=== PATIENT | female | born 1975 | race African-American/Black ===

== ENCOUNTER 2017-02-26 17:53 | Emergency (ER) | payer OTHER ==
[~2017-02-26] VITALS: Ht 170.2 cm; Wt 52.6 kg
[~2017-02-26 17:53] MED LIST: BENTYL 20 MG TA20 M1 PO; IBUPROFEN 200200 M1 PO; LABETALOL HCL100 MG; LISINOPRIL10 MG PO; NORCO 5-325 TA1 EACH PO; PAIN & FEVER325 MG PO; VICODIN 5-5001 EACH PO; ZOFRAN ODT4 M1 PO; ZOFRAN ODT4 MG PO
[2017-02-26 18:38] LABS: ABSOLUTE NEUTROPHILS 5.6 thou/uL (1.4-8.2); BASOPHILS 0.8 % (0.0-2.0); HEMATOCRIT 37.6 % (37.0-47.0); HEMOGLOBIN 12.9 gm/dL (12.0-15.0); LYMPHOCYTES 18.6 % (24.0-44.0); MANUAL DIFF NO; MCHC 34.3 g/dL (28.0-37.0); MCV 99.1 fL (80.0-100.0); MONOCYTES 3.3 % (1.0-8.0); PLATELET COUNT 120 thou/uL (150-400); POLYS 77.3 % (36.0-66.0); RDW 14.4 % (10.5-14.5); WBC 7.2 thou/uL (4.0-11.0)
[2017-02-26 18:49] LABS: CALCIUM 9.3 mg/dL (8.5-10.1); CREATININE 0.9 mg/dL (0.6-1.0); POTASSIUM 3.3 mmol/L (3.5-5.1)
[2017-02-26 18:54] LABS: ALBUMIN 3.8 g/dL (3.4-5.0); DIRECT BILIRUBIN 0.2 mg/dL (<0.1-0.3); TOTAL BILIRUBIN 0.8 mg/dL (<0.1-1.0); TOTAL PROTEIN 7.2 g/dL (6.4-8.2)
[2017-02-26] MEDS ORDERED: NORCO 5-325 TA1 EACH PO (20:24)
[2017-02-26 20:54] VITALS: BP 145/51
== END 2017-02-26 20:58 | disposition home or self-care (01) ==
LOC: ER 17:53
PROVIDERS: Emergency Medicine
DX: R10.84 Generalized abdominal pain (principal); I10 Essential (primary) hypertension; G40.909 Epilepsy, unspecified, not intractable, without status epilepticus; F17.210 Nicotine dependence, cigarettes, uncomplicated; F10.99 Alcohol use, unspecified with unspecified alcohol-induced disorder; Z88.5 Allergy status to narcotic agent

== ENCOUNTER 2017-06-25 11:53 | Inpatient (IN) | payer OTHER ==
[~2017-06-25] VITALS: Ht 152.4 cm; Wt 73.0 kg
--- NOTE | ~2017-06-25 | S ---
[facility] [place] [address] SURGICAL PATH RPT PROCEDURE Name: LAMONT ANTHONY Room #: 432-P DIS IN M.R.#: [id number] Admission: 06/25/17 Date of : 73 Discharge: 06/28/17 Report #: [id number] Path Case #: [id number] PATHOLOGY REPORT COLLECTION DATE: 06/26/2017 RECEIVED DATE: 06/28/2017 SUBMITTING PHYS: Dr. Young Dewitt OTHER PHYS: Dr. Ann Gonzalez D.O. SPECIMEN(S) RECEIVED: A.Small bowel for celiac bx B.Bx antrum for H. pylori C.Bx distal esophagus, r/o Barretts * * * * * * * * * * * * FINAL DIAGNOSIS: A. Small bowel mucosa, small bowel for celiac, endoscopic biopsy: - No diagnostic abnormalities present. - Negative for villous blunting or increase in intraepithelial lymphocytes. B. Gastric mucosa, antrum rule out H. pylori, endoscopic biopsy: - Mild reactive gastropathy. - Negative for intestinal metaplasia or atrophy. - Negative for Helicobacter pylori. C. Gastric cardia-type mucosa, distal esophagus rule out Baker's, endoscopic biopsy: - Moderate chronic inflammation. - Negative for intestinal metaplasia or dysplasia. COMMENT: Well controlled Helicobacter pylori immunohistochemical stain performed on block B1 - negative. (IUV:pit; 06/29/2017) PATHOLOGIST: Patricia Pham M.D. REPORT ELECTRONICALLY SIGNED BY: Patricia Pham M.D. DATE/TIME: 06/29/2017 15:38 * * * * * * * * * * * * GROSS PATHOLOGY: A. The specimen is received in formalin, labeled "Lamont Anthony BX small bowel for celiac," and consists of 3 fragments of loving soft tissue measuring between 0.6 x 0.2 and 0.1 cm and 0.2 x 0.2 x 0.1 cm. They are entirely submitted in cassette A1. B. Received in formalin labeled "Lamont Anthony BX antrum rule out [address] [address] SURGICAL PATH RPT PROCEDURE Name: LAMONT ANTHONY [facility] Room #: 432-P [facility] IN M.R.#: [id number] Admission: 06/25/17 Date of : 73 Discharge: 06/28/17 Report #: [id number] Path Case #: [id number] H. pylori," is a segment of loving soft tissue measuring 0.3 x 0.2 x 0.1 cm in maximum dimension. The specimen is submitted entirely in cassette B1. C. The specimen is received in formalin, labeled "Lamont Anthony BX distal esophagus rule out Baker's," and consists of 2 fragments of loving soft tissue measuring 0.4 x 0.3 x 0.1 cm and 0.3 x 0.3 x 0.2 cm. They are entirely submitted in cassette C1. (SDY; 06/28/2017) CLINICAL HISTORY: Abdominal pain Esophagitis, gastritis INITIAL CPT CODE(S): A; 11058 B; 13708, 05724 C; 89434 Professional services performed by [facility] at [facility] [address], [place] [address] Technical services performed by [facility] at [address] [place] [address], [address], [place] [address]. [facility] [address] [place] [address] PHONE: [phone] DIRECTOR: Randy Chow M.D. * * * END OF REPORT * * *
--- NOTE | ~2017-06-25 | H ---
[facility] [place] [address] [place] [address] HISTORY AND PHYSICAL Name: LAMONT ANTHONY Room #: 432-P [facility] IN M.R.#: [id number] Admission: 06/25/17 Attend Phys: Ann Martin MD Discharge: 06/28/17 Date of : 73 Report #: [id number] THIS REPORT FOR: //name// CC: HERLINDA Martin DATE OF SERVICE: 06/25/2017 CHIEF COMPLAINT: Abdominal pain, nausea and vomiting. HISTORY OF PRESENT ILLNESS: The patient is a 42-year-old female with history of IBS, who came to the hospital with intractable nausea, vomiting and abdominal pain. The patient states that she ate out at restaurants yesterday. This morning she woke up with severe abdominal pain, with nausea and vomiting. The patient states that abdominal pain is diffuse, and describes it as severe. She vomited 7 times this morning, and her food intake has been diminished. Her potassium level is 2.7. Other electrolytes are in the normal range. KUB is unremarkable, and lipase is normal. The patient denies diarrhea, or change in bowel habits. PAST MEDICAL HISTORY: 1. Hypertension. 2. History of seizures, not otherwise specified, not on current treatment. 3. IBS. CURRENT MEDICATIONS: Dicyclomine, [place], lisinopril, and Zofran as needed. FAMILY HISTORY: Reviewed and not pertinent to the patient's current condition. SOCIAL HISTORY: The patient smokes cigarettes and marijuana. She denies alcohol use. REVIEW OF SYSTEMS: As above in HPI section, all others negative. PHYSICAL EXAMINATION: GENERAL: The patient is a young healthy looking female who is uncomfortable due to ongoing symptoms. VITAL SIGNS: Blood pressure is 148/75, from 179/115 earlier. Heart rate is between 48 and 86. Respiration is 12, temperature is 95.7. HEENT: Pupils are equal. Eye movements are normal. Sclerae are anicteric. NECK: Supple. The patient has no thyromegaly. JVD is not appreciated. Oral mucosa is somewhat dry. RESPIRATORY: The patient has clear respiratory sounds bilaterally. Chest moves symmetrically with breathing. CARDIOVASCULAR: The patient has regular rhythm and rate. She has no murmurs, gallops, or rubs. [address] [address] HISTORY AND PHYSICAL Name: LAMONT ANTHONY COUNTS INCLUDE 234 BEDS AT THE [facility] Room #: [address] [place] [address] IN [facility].#: [id number] Admission: 06/25/17 Attend Phys: Ann Martin MD Discharge: 06/28/17 Date of : 73 Report #: [id number] GASTROINTESTINAL: Abdomen is soft, nondistended, with present bowel sounds. Abdomen is slightly tender on deep palpation, diffusely. There is no focal tenderness, and no rebound. Hepatomegaly or splenomegaly is not palpated. MUSCULOSKELETAL: There is no edema, cyanosis, or clubbing. NEUROLOGIC: Grossly intact. LABS: Basic metabolic profile is essentially normal, except potassium of 2.7. Liver function tests are normal. test is negative. Lipase is normal. CBC with differential is normal. Hemoglobin is slightly high at 15.8. Platelets slightly low at 145. Urinalysis is still pending. ASSESSMENT AND PLAN: 1. Nausea and vomiting, and diffuse abdominal pain. Irritable bowel syndrome exacerbation, versus hyperemesis due to marijuana use. Unremarkable examination, negative KUB, and normal lipase. We will continue symptomatic treatment. We will ask GI team to evaluate the patient. Consultation is appreciated. 2. Hypokalemia, due to nausea and vomiting. Potassium is 2.7. Potassium is being replaced. Continue IV fluids and reassess. 3. Marijuana and tobacco abuse. Advised to quit. 4. Hypertension. The patient has accelerated hypertension when she came in, but now blood pressure is acceptable. As noted, blood pressure was 179/115, and currently it is 148/75. Lisinopril was resumed. Hydralazine will be used p.r.n. 5. Deep venous thrombosis prophylaxis. SubQ Lovenox. <ELECTRONICALLY SIGNED> By: Ann Martin MD 06/28/17 1906 1500 1654 Ann Martin MD /nt
--- NOTE | ~2017-06-25 | EKG ---
[place] [address] [facility] [place] [address] ELECTROCARDIOGRAM REPORT Name: LAMONT ANTHONYYUDELKA Room #: 432- ADM IN M.R.#: [id number] Admission: 06/25/17 Attend Phys: Ann Martin MD Discharge: Date of : 73 Report #: [id number] THIS REPORT FOR: //name// [facility] Test Date: 2017-06-27 Test Time: 09:18:30 Pat Name: LAMONT ANTHONY Department: Room: 432 Gender: F Process Safety Specialist: ED : 1975 Requested By: Etelvina Smith Order Number: [id number] MD: Fabio Carter Measurements Intervals [place] Rate: 44 P: 10 SD: 138 QRS: 60 QRSD: 99 T: 58 QT: 503 QTc: 431 Interpretive Statements Sinus bradycardia Poor R wave progression ST elev, probable normal early repol pattern No previous ECG available for comparison Electronically Signed On 06-27-2017 15:32:15 [employer]ICAL [employer]ATOR by Fabio Carter [email or web address] <ELECTRONICALLY SIGNED> By: Fabio Carter MD, [facility] 06/27/17 1532 7 Fabio Carter MD, FACC /EPI
[2017-06-25 12:10] VITALS: BP 179/115
[2017-06-25 12:26] LABS: ABSOLUTE NEUTROPHILS 5.3 thou/uL (1.4-8.2); BASOPHILS 0.5 % (0.0-2.0); EOSINOPHILS 1.1 % (0.0-3.0); HEMATOCRIT 45.7 % (37.0-47.0); HEMOGLOBIN 15.8 gm/dL (12.0-15.0); LYMPHOCYTES 26.5 % (24.0-44.0); MCH 33.1 pg (26.0-34.0); MCHC 34.6 g/dL (28.0-37.0); MCV 95.7 fL (80.0-100.0); MONOCYTES 4.5 % (1.0-8.0); PLATELET COUNT 145 thou/uL (150-400); POLYS 67.4 % (36.0-66.0); RBC 4.77 mil/uL (4.20-5.00); RDW 15.5 % (10.5-14.5); WBC 7.9 thou/uL (4.0-11.0)
[2017-06-25 13:02] LABS: CALCIUM 9.7 mg/dL (8.5-10.1); CREATININE 0.9 mg/dL (0.6-1.0)
[2017-06-25 13:04] LABS: POTASSIUM 2.7 mmol/L (3.5-5.1)
[2017-06-25 13:08] LABS: TOTAL BILIRUBIN 0.6 mg/dL (<0.1-1.0); TOTAL PROTEIN 7.7 g/dL (6.4-8.2)
[2017-06-25 15:07] VITALS: BP 148/75
[2017-06-25 16:00] VITALS: BP 143/70
[2017-06-25 20:00] VITALS: BP 187/76
[2017-06-25 20:41] VITALS: BP 187/76
[2017-06-26 00:14] VITALS: BP 128/71
[2017-06-26 03:55] VITALS: BP 104/57
[2017-06-26 06:28] LABS: ABSOLUTE NEUTROPHILS 4.7 thou/uL (1.4-8.2); BASOPHILS 0.8 % (0.0-2.0); EOSINOPHILS 0.3 % (0.0-3.0); HEMATOCRIT 40.1 % (37.0-47.0); LYMPHOCYTES 28.5 % (24.0-44.0); MCH 32.8 pg (26.0-34.0); MCHC 33.6 g/dL (28.0-37.0); MCV 97.8 fL (80.0-100.0); MONOCYTES 8.8 % (1.0-8.0); PLATELET COUNT 119 thou/uL (150-400); POLYS 61.6 % (36.0-66.0); RDW 15.3 % (10.5-14.5); WBC 7.6 thou/uL (4.0-11.0)
[2017-06-26 06:31] LABS: HEMOGLOBIN 13.4 gm/dL (12.0-15.0)
[2017-06-26 06:53] LABS: CALCIUM 8.4 mg/dL (8.5-10.1); CREATININE 0.7 mg/dL (0.6-1.0); POTASSIUM 3.9 mmol/L (3.5-5.1)
[2017-06-26 08:00] VITALS: BP 89/49
[2017-06-26 10:56] LABS: URINE BILIRUBIN NEGATIVE (Negative); URINE BLOOD NEGATIVE (Negative); URINE CLARITY CLEAR; URINE COLOR YELLOW; URINE GLUCOSE-RANDOM* NEGATIVE (Negative); URINE KETONES NEGATIVE (Negative); URINE LEUKOCYTES-REFLEX NEGATIVE (Negative); URINE NITRITE-REFLEX NEGATIVE (Negative); URINE PROTEIN (DIPSTICK) NEGATIVE (Negative); URINE SPECIFIC GRAVITY 1.025 (1.005-1.035); URINE UROBILINOGEN 0.2 E.U./dl (0.2-1.0)
[2017-06-26 13:31] LABS: AMP/METHAMP Negative (Negative); BARBITURATES Negative (Negative); BENZODIAZEPINES Negative (Negative); COCAINE Negative (Negative); METHADONE Negative (Negative); OPIATES POSITIVE (Negative); PCP Negative (Negative)
[2017-06-26 15:18] VITALS: BP 166/67
[2017-06-26 23:40] VITALS: BP 112/52
[2017-06-27 04:00] VITALS: BP 171/66
[2017-06-27 06:09] LABS: HEMATOCRIT 40.2 % (37.0-47.0); HEMOGLOBIN 13.5 gm/dL (12.0-15.0); MCH 32.9 pg (26.0-34.0); MCHC 33.5 g/dL (28.0-37.0); MCV 98.1 fL (80.0-100.0); RBC 4.1 mil/uL (4.20-5.00); RDW 15.5 % (10.5-14.5)
[2017-06-27 06:17] LABS: ALBUMIN 3.4 g/dL (3.4-5.0); CALCIUM 8.8 mg/dL (8.5-10.1); CREATININE 0.8 mg/dL (0.6-1.0); POTASSIUM 4.1 mmol/L (3.5-5.1); TOTAL BILIRUBIN 0.6 mg/dL (<0.1-1.0); TOTAL PROTEIN 6.6 g/dL (6.4-8.2)
[2017-06-27 08:46] VITALS: BP 113/61
[2017-06-27 15:50] VITALS: BP 150/61
[2017-06-27 20:00] VITALS: BP 101/58
[2017-06-27 23:50] VITALS: BP 114/69
[2017-06-28 00:10] VITALS: BP 114/69
[2017-06-28 05:23] LABS: HEMATOCRIT 35.9 % (37.0-47.0); HEMOGLOBIN 12.1 gm/dL (12.0-15.0); MCH 32.6 pg (26.0-34.0); MCHC 33.8 g/dL (28.0-37.0); MCV 96.5 fL (80.0-100.0); RBC 3.72 mil/uL (4.20-5.00); RDW 14.8 % (10.5-14.5); WBC 4.9 thou/uL (4.0-11.0)
[2017-06-28 05:31] VITALS: BP 125/66
[2017-06-28 05:44] LABS: ALBUMIN 2.7 g/dL (3.4-5.0); CALCIUM 7.9 mg/dL (8.5-10.1); CREATININE 0.9 mg/dL (0.6-1.0); POTASSIUM 4.4 mmol/L (3.5-5.1); TOTAL BILIRUBIN 0.4 mg/dL (<0.1-1.0); TOTAL PROTEIN 5.6 g/dL (6.4-8.2)
[2017-06-28 07:40] VITALS: BP 122/65
[2017-06-28 11:06] VITALS: BP 122/65
== END 2017-06-28 11:47 | disposition home or self-care (01) | DRG 392 ==
LOC: ER 11:53 → EROBS 14:08 → 4E 15:51 → ENTRNSPT 06-28 11:32 → EDTRNSPTSTS 06-28 11:34 → 4E 06-28 11:47
PROVIDERS: Hospitalist; Internal Medicine Endocrinology, Diabetes & Metabolism; Physician Assistant
PROC: 0DB68ZX Excision of Stomach, Via Natural or Artificial Opening Endoscopic, Diagnostic (ICD-10-PCS; principal; 2017-06-26)
PROC: 0DB58ZX Excision of Esophagus, Via Natural or Artificial Opening Endoscopic, Diagnostic (ICD-10-PCS; principal; 2017-06-26)
PROC: 0DB98ZX Excision of Duodenum, Via Natural or Artificial Opening Endoscopic, Diagnostic (ICD-10-PCS; principal; 2017-06-26)
DX: K29.70 Gastritis, unspecified, without bleeding (principal); I10 Essential (primary) hypertension; F17.210 Nicotine dependence, cigarettes, uncomplicated; E87.6 Hypokalemia; F12.10 Cannabis abuse, uncomplicated; G40.909 Epilepsy, unspecified, not intractable, without status epilepticus; K20.9 Esophagitis, unspecified; K58.9 Irritable bowel syndrome, unspecified; F19.10 Other psychoactive substance abuse, uncomplicated; Z88.0 Allergy status to penicillin; Z79.899 Other long term (current) drug therapy; Z88.6 Allergy status to analgesic agent; Z28.21 Immunization not carried out because of patient refusal
CPT/HCPCS: 10183; 62110; 62900; 70005

== ENCOUNTER 2017-07-04 15:55 | Emergency (ER) | payer OTHER ==
[~2017-07-04] VITALS: Ht 165.1 cm; Wt 72.6 kg
[2017-07-04 16:15] LABS: ABSOLUTE NEUTROPHILS 5.6 thou/uL (1.4-8.2); BASOPHILS 0.7 % (0.0-2.0); EOSINOPHILS 0.3 % (0.0-3.0); HEMATOCRIT 45.2 % (37.0-47.0); HEMOGLOBIN 15.6 gm/dL (12.0-15.0); LYMPHOCYTES 18.8 % (24.0-44.0); MCH 32.9 pg (26.0-34.0); MCHC 34.4 g/dL (28.0-37.0); MCV 95.7 fL (80.0-100.0); MONOCYTES 3.6 % (1.0-8.0); PLATELET COUNT 176 thou/uL (150-400); POLYS 76.6 % (36.0-66.0); RBC 4.73 mil/uL (4.20-5.00); RDW 14.8 % (10.5-14.5); WBC 7.3 thou/uL (4.0-11.0)
[2017-07-04] MEDS ORDERED: HYDROXYZINE HCL25 M1 PO (16:20)
[2017-07-04 16:22] LABS: ANION GAP 14 mmol/L (7-16); BUN 12 mg/dL (7-18); CALCIUM 10.1 mg/dL (8.5-10.1); CHLORIDE 103 mmol/L (98-107); CO2 25 mmol/L (21-32); GLUCOSE 116 mg/dL (74-106); POTASSIUM 3.9 mmol/L (3.5-5.1); SODIUM 142 mmol/L (136-145)
[2017-07-04 16:28] LABS: ALBUMIN 4.4 g/dL (3.4-5.0); DIRECT BILIRUBIN < 0.1 mg/dL (<0.1-0.3); LIPASE 64 U/L (73-393); SGOT 23 U/L (15-37); SGPT 34 U/L (30-65); TOTAL BILIRUBIN 0.6 mg/dL (<0.1-1.0); TOTAL PROTEIN 8.6 g/dL (6.4-8.2)
[2017-07-04 18:13] VITALS: BP 92/49
[2017-07-04] MEDS ORDERED: PEPCID20 MG PO (18:22)
[2017-07-04] MEDS ORDERED: CARAFATE 1 GM TA1 G1 PO (18:22)
[2017-07-04] MEDS ORDERED: PHENERGAN 25 MG25 M1 PO (18:22)
== END 2017-07-04 18:47 | disposition home or self-care (01) ==
LOC: ER 15:55
PROVIDERS: Nurse Practitioner
DX: R10.9 Unspecified abdominal pain (principal); R11.2 Nausea with vomiting, unspecified; I10 Essential (primary) hypertension; Z88.5 Allergy status to narcotic agent

== ENCOUNTER 2017-08-19 14:44 | Emergency (ER) | payer OTHER ==
[~2017-08-19] VITALS: Ht 170.2 cm; Wt 72.6 kg
[~2017-08-19 14:44] MED LIST changes: +CARAFATE 1 GM TA1 G1 PO; +HYDROXYZINE HCL25 M1 PO; +PEPCID20 MG PO; +PHENERGAN 25 MG25 M1 PO
[2017-08-19] MEDS ORDERED: HYDROCHLOROTHIA25 M2 PO (15:30)
[2017-08-19] MEDS ORDERED: LINZESS290 MCG PO (15:31)
[2017-08-19] MEDS ORDERED: ZOLOFT50 MG PO (15:31)
[2017-08-19 15:40] LABS: ABSOLUTE NEUTROPHILS 6.2 thou/uL (1.4-8.2); BASOPHILS 0.6 % (0.0-2.0); EOSINOPHILS 0.1 % (0.0-3.0); HEMATOCRIT 45.3 % (37.0-47.0); HEMOGLOBIN 15.4 gm/dL (12.0-15.0); LYMPHOCYTES 13.6 % (24.0-44.0); MCH 33.9 pg (26.0-34.0); MCV 99.8 fL (80.0-100.0); MONOCYTES 2.4 % (1.0-8.0); POLYS 83.3 % (36.0-66.0); RBC 4.54 mil/uL (4.20-5.00); RDW 14.9 % (10.5-14.5); WBC 7.5 thou/uL (4.0-11.0)
[2017-08-19 15:48] LABS: CALCIUM 10.2 mg/dL (8.5-10.1); CREATININE 0.9 mg/dL (0.6-1.0); POTASSIUM 3.4 mmol/L (3.5-5.1)
[2017-08-19 15:53] LABS: ALBUMIN 4.5 g/dL (3.4-5.0); TOTAL BILIRUBIN 0.7 mg/dL (<0.1-1.0)
[2017-08-19 15:57] LABS: PLATELET COUNT 149 thou/uL (150-400)
[2017-08-19 16:01] LABS: URINE BILIRUBIN 1+ (Negative); URINE BLOOD TRACE (Negative); URINE CLARITY CLEAR; URINE COLOR YELLOW; URINE GLUCOSE-RANDOM* NEGATIVE (Negative); URINE KETONES 3+ (Negative); URINE LEUKOCYTES-REFLEX NEGATIVE (Negative); URINE NITRITE-REFLEX NEGATIVE (Negative); URINE PROTEIN (DIPSTICK) 3+ (Negative); URINE UROBILINOGEN 0.2 E.U./dl (0.2-1.0)
[2017-08-19 16:09] LABS: AMP/METHAMP Negative (Negative); BARBITURATES Negative (Negative); BENZODIAZEPINES Negative (Negative); COCAINE Negative (Negative); METHADONE Negative (Negative); OPIATES POSITIVE (Negative); PCP Negative (Negative)
[2017-08-19 16:13] LABS: ICTOTEST (BILI CONFIRMATORY) Negative (Negative); URINE REDUCING SUBSTANCE NEGATIVE
[2017-08-19 16:26] LABS: BACTERIA-REFLEX None Seen /HPF (None Seen); CASTS None Seen /LPF (None Seen); CRYSTALS None Seen /LPF (None Seen); MUCUS >6 Heavy strn/LPF (None Seen); SQUAMOUS 0-3 Few /LPF (0-3); URINE RBC 3-10 Few /HPF (0-2); URINE WBC-REFLEX 0-5 Rare /HPF (0-5)
[2017-08-19] MEDS ORDERED: ZANTAC 150MG T150 MG PO (17:18)
[2017-08-19] MEDS ORDERED: ZOFRAN ODT4 MG DISSOLVE (17:18)
[2017-08-19] MEDS ORDERED: BENTYL 20 MG TA20 M1 PO (17:18)
== END 2017-08-19 18:32 | disposition home or self-care (01) ==
LOC: ER 14:44
PROVIDERS: Physician Assistant
DX: R10.9 Unspecified abdominal pain (principal); R11.2 Nausea with vomiting, unspecified

== ENCOUNTER 2017-08-22 01:45 | Emergency (ER) | payer OTHER ==
[~2017-08-22] VITALS: Ht 170.2 cm; Wt 70.8 kg
[~2017-08-22 01:45] MED LIST changes: +HYDROCHLOROTHIA25 M2 PO; +LINZESS290 MCG PO; +ZANTAC 150MG T150 MG PO; +ZOFRAN ODT4 MG DISSOLVE; +ZOLOFT50 MG PO
[2017-08-22 02:20] LABS: ABSOLUTE NEUTROPHILS 4.9 thou/uL (1.4-8.2); BASOPHILS 0.8 % (0.0-2.0); EOSINOPHILS 0.3 % (0.0-3.0); HEMATOCRIT 45.9 % (37.0-47.0); HEMOGLOBIN 15.8 gm/dL (12.0-15.0); LYMPHOCYTES 27.4 % (24.0-44.0); MCH 34.2 pg (26.0-34.0); MCHC 34.3 g/dL (28.0-37.0); MCV 99.6 fL (80.0-100.0); MONOCYTES 7.4 % (1.0-8.0); PLATELET COUNT 147 thou/uL (150-400); POLYS 64.1 % (36.0-66.0); RBC 4.61 mil/uL (4.20-5.00); RDW 14.9 % (10.5-14.5); WBC 7.7 thou/uL (4.0-11.0)
[2017-08-22] MEDS ORDERED: PHENERGAN 25 MG25 M1 PO (02:23)
[2017-08-22] MEDS ORDERED: LIORESAL 10 MG10 MG PO (02:23)
[2017-08-22 02:24] LABS: CALCIUM 9.2 mg/dL (8.5-10.1)
[2017-08-22 02:31] LABS: POTASSIUM 2.9 mmol/L (3.5-5.1)
[2017-08-22 02:32] LABS: ALBUMIN 4.1 g/dL (3.4-5.0); DIRECT BILIRUBIN 0.2 mg/dL (<0.1-0.3); TOTAL BILIRUBIN 0.9 mg/dL (<0.1-1.0); TOTAL PROTEIN 8.3 g/dL (6.4-8.2)
[2017-08-22 04:06] LABS: URINE BLOOD 1+ (Negative); URINE CLARITY CLEAR; URINE GLUCOSE-RANDOM* NEGATIVE (Negative); URINE KETONES 1+ (Negative); URINE LEUKOCYTES-REFLEX NEGATIVE (Negative); URINE NITRITE-REFLEX NEGATIVE (Negative); URINE PROTEIN (DIPSTICK) 1+ (Negative); URINE SPECIFIC GRAVITY 1.015 (1.005-1.035); URINE UROBILINOGEN 0.2 E.U./dl (0.2-1.0)
[2017-08-22 04:08] LABS: ICTOTEST (BILI CONFIRMATORY) Negative (Negative); URINE BILIRUBIN NEGATIVE (Negative); URINE COLOR DARK YELLOW
[2017-08-22 04:19] LABS: MUCUS 0-3 Light strn/LPF (None Seen); SQUAMOUS >10 Many /LPF (0-3)
[2017-08-22 04:20] LABS: CASTS None Seen /LPF (None Seen); CRYSTALS None Seen /LPF (None Seen); URINE WBC-REFLEX 0-5 Rare /HPF (0-5)
[2017-08-22] MEDS ORDERED: PHENERGAN 25 MG25 MG PO (04:43)
== END 2017-08-22 04:57 | disposition home or self-care (01) ==
LOC: ER 01:45
PROVIDERS: Emergency Medicine
DX: R10.9 Unspecified abdominal pain (principal); R11.2 Nausea with vomiting, unspecified; I10 Essential (primary) hypertension; F17.210 Nicotine dependence, cigarettes, uncomplicated; Z98.890 Other specified postprocedural states; Z88.5 Allergy status to narcotic agent

== ENCOUNTER 2017-08-25 09:47 | Emergency (ER) | payer OTHER ==
[~2017-08-25] VITALS: Ht 170.2 cm; Wt 70.3 kg
--- NOTE | ~2017-08-25 | EKG ---
[place] [address] [facility] [place] [address] ELECTROCARDIOGRAM REPORT Name: LAMONT ANTHONY [id number] Admission: 08/25/17 Attend Phys: Discharge: 08/25/17 Date of : 73 Report #: [id number] THIS REPORT FOR: //name// [facility] ED Test Date: 2017-08-25 Test Time: 12:29:46 Pat Name: LAMONT ANTHONY Department: Room: Gender: F Check Cashier: EMIL : 1975 Requested By: Irene Boswell Order Number: [id number] MD: Fabio Carter Measurements Intervals [place] Rate: 52 P: 35 IA: 130 QRS: 63 QRSD: 102 T: 60 QT: 508 QTc: 473 Interpretive Statements Sinus bradycardia Early repolarization Baseline wander in lead(s) III Compared to ECG 06/27/2017 09:18:30 No significant change was found Electronically Signed On 08-25-2017 16:52:30 CDT by Fabio Carter [email or web address] <ELECTRONICALLY SIGNED> By: Fabio Carter MD, [facility] 08/25/17 1652 1229 1229 Fabio Carter MD, [facility] /EPI
[~2017-08-25 09:47] MED LIST changes: +LIORESAL 10 MG10 MG PO; +PHENERGAN 25 MG25 MG PO
[2017-08-25] MEDS ORDERED: NORCO 5-325 TA1 EACH PO (09:58)
[2017-08-25 10:07] LABS: BASOPHILS 0.7 % (0.0-2.0); EOSINOPHILS 0.7 % (0.0-3.0); HEMATOCRIT 44.9 % (37.0-47.0); HEMOGLOBIN 15.4 gm/dL (12.0-15.0); LYMPHOCYTES 21.3 % (24.0-44.0); MCH 34.1 pg (26.0-34.0); MCHC 34.3 g/dL (28.0-37.0); MCV 99.4 fL (80.0-100.0); PLATELET COUNT 144 thou/uL (150-400); POLYS 71.3 % (36.0-66.0); RBC 4.52 mil/uL (4.20-5.00); RDW 14.7 % (10.5-14.5); WBC 9.8 thou/uL (4.0-11.0)
[2017-08-25 10:08] LABS: URINE BILIRUBIN NEGATIVE (Negative); URINE BLOOD TRACE (Negative); URINE CLARITY CLEAR; URINE COLOR YELLOW; URINE GLUCOSE-RANDOM* NEGATIVE (Negative); URINE KETONES NEGATIVE (Negative); URINE LEUKOCYTES NEGATIVE (Negative); URINE NITRITE NEGATIVE (Negative); URINE PROTEIN (DIPSTICK) TRACE (Negative); URINE SPECIFIC GRAVITY 1.015 (1.005-1.035)
[2017-08-25 10:16] LABS: CREATININE 0.9 mg/dL (0.6-1.0); POTASSIUM 3.1 mmol/L (3.5-5.1)
[2017-08-25 10:22] LABS: ALBUMIN 4.3 g/dL (3.4-5.0); TOTAL BILIRUBIN 0.8 mg/dL (<0.1-1.0); TOTAL PROTEIN 8.6 g/dL (6.4-8.2)
[2017-08-25] MEDS ORDERED: ONDANSETRON HCL4 M2 PO (13:38)
== END 2017-08-25 13:53 | disposition home or self-care (01) ==
LOC: ER 09:47
PROVIDERS: Physician Assistant
DX: K29.00 Acute gastritis without bleeding (principal); F12.10 Cannabis abuse, uncomplicated; I10 Essential (primary) hypertension; F17.210 Nicotine dependence, cigarettes, uncomplicated; Z88.5 Allergy status to narcotic agent

== ENCOUNTER 2017-10-14 09:50 | Emergency (ER) | payer OTHER ==
[~2017-10-14] VITALS: Ht 170.2 cm; Wt 73.5 kg
[~2017-10-14 09:50] MED LIST changes: +ONDANSETRON HCL4 M2 PO
[2017-10-14] MEDS ORDERED: PHENERGAN 25 MG25 M1 PO (10:03)
[2017-10-14] MEDS ORDERED: PROMS25 WY RECTAL (10:03)
[2017-10-14 10:30] LABS: ABSOLUTE NEUTROPHILS 5.9 thou/uL (1.4-8.2); EOSINOPHILS 0.2 % (0.0-3.0); HEMATOCRIT 46.9 % (37.0-47.0); HEMOGLOBIN 15.9 gm/dL (12.0-15.0); LYMPHOCYTES 21.1 % (24.0-44.0); MCH 33.9 pg (26.0-34.0); MCV 99.7 fL (80.0-100.0); MONOCYTES 3.6 % (1.0-8.0); PLATELET COUNT 142 thou/uL (150-400); POLYS 74.1 % (36.0-66.0); RDW 14.1 % (10.5-14.5); WBC 7.9 thou/uL (4.0-11.0)
[2017-10-14 10:40] LABS: CALCIUM 9.4 mg/dL (8.5-10.1)
[2017-10-14 10:46] LABS: ALBUMIN 4.3 g/dL (3.4-5.0); DIRECT BILIRUBIN 0.1 mg/dL (<0.1-0.3); TOTAL BILIRUBIN 0.5 mg/dL (<0.1-1.0); TOTAL PROTEIN 8.3 g/dL (6.4-8.2)
== END 2017-10-14 11:25 | disposition home or self-care (01) ==
LOC: ER 09:50
PROVIDERS: Emergency Medicine
DX: F12.188 Cannabis abuse with other cannabis-induced disorder (principal); R10.9 Unspecified abdominal pain; R11.0 Nausea; E87.6 Hypokalemia; I10 Essential (primary) hypertension; F17.210 Nicotine dependence, cigarettes, uncomplicated; Z88.5 Allergy status to narcotic agent

== ENCOUNTER 2017-10-16 01:32 | Emergency (ER) | payer OTHER ==
[~2017-10-16] VITALS: Ht 170.2 cm; Wt 73.0 kg
[~2017-10-16 01:32] MED LIST changes: +PROMS25 WY RECTAL
[2017-10-16 02:06] LABS: ABSOLUTE NEUTROPHILS 5.3 thou/uL (1.4-8.2); BASOPHILS 0.9 % (0.0-2.0); EOSINOPHILS 0.1 % (0.0-3.0); HEMATOCRIT 46.9 % (37.0-47.0); HEMOGLOBIN 16.3 gm/dL (12.0-15.0); LYMPHOCYTES 27.4 % (24.0-44.0); MCH 34.3 pg (26.0-34.0); MCHC 34.8 g/dL (28.0-37.0); MCV 98.7 fL (80.0-100.0); MONOCYTES 5.6 % (1.0-8.0); PLATELET COUNT 202 thou/uL (150-400); RBC 4.75 mil/uL (4.20-5.00); WBC 8.1 thou/uL (4.0-11.0)
[2017-10-16 02:13] LABS: CALCIUM 9.8 mg/dL (8.5-10.1); POTASSIUM 3.1 mmol/L (3.5-5.1)
[2017-10-16 02:18] LABS: ALBUMIN 4.4 g/dL (3.4-5.0); TOTAL BILIRUBIN 0.8 mg/dL (<0.1-1.0); TOTAL PROTEIN 8.7 g/dL (6.4-8.2)
[2017-10-16 05:29] LABS: URINE BILIRUBIN 1+ (Negative); URINE BLOOD 1+ (Negative); URINE CLARITY CLEAR; URINE COLOR YELLOW; URINE GLUCOSE-RANDOM* NEGATIVE (Negative); URINE KETONES 3+ (Negative); URINE LEUKOCYTES-REFLEX NEGATIVE (Negative); URINE NITRITE-REFLEX NEGATIVE (Negative); URINE PROTEIN (DIPSTICK) NEGATIVE (Negative); URINE SPECIFIC GRAVITY >= 1.030 (1.005-1.035); URINE UROBILINOGEN 0.2 E.U./dl (0.2-1.0)
[2017-10-16 05:31] LABS: ICTOTEST (BILI CONFIRMATORY) Negative (Negative)
[2017-10-16 05:40] LABS: BACTERIA-REFLEX None Seen /HPF (None Seen); CASTS None Seen /LPF (None Seen); CRYSTALS None Seen /LPF (None Seen); MUCUS 4-6 Moderate strn/LPF (None Seen); SQUAMOUS 4-10 Moderate /LPF (0-3); URINE RBC 3-10 Few /HPF (0-2); URINE WBC-REFLEX 0-5 Rare /HPF (0-5)
[2017-10-16] MEDS ORDERED: ZOFRAN ODT4 MG PO (06:21)
[2017-10-16] MEDS ORDERED: ZOFRAN ODT4 M1 PO (06:25)
== END 2017-10-16 06:38 | disposition home or self-care (01) ==
LOC: ER 01:32
PROVIDERS: Emergency Medicine
DX: R10.9 Unspecified abdominal pain (principal); R11.2 Nausea with vomiting, unspecified; I10 Essential (primary) hypertension; F17.210 Nicotine dependence, cigarettes, uncomplicated; Z88.5 Allergy status to narcotic agent

== ENCOUNTER 2019-04-24 10:44 | Emergency (ER) | payer OTHER ==
[~2019-04-24] VITALS: Ht 170.2 cm; Wt 83.9 kg
[2019-04-24 11:15] LABS: ABSOLUTE NEUTROPHILS 2.8 thou/uL (1.4-8.2); EOSINOPHILS 0.1 % (0.0-3.0); HEMATOCRIT 48.8 % (37.0-47.0); HEMOGLOBIN 16.7 gm/dL (12.0-15.0); LYMPHOCYTES 27.5 % (24.0-44.0); MCHC 34.2 g/dL (28.0-37.0); MCV 99.3 fL (80.0-100.0); MONOCYTES 10.5 % (1.0-8.0); PLATELET COUNT 122 thou/uL (150-400); POLYS 60.9 % (36.0-66.0); RBC 4.92 mil/uL (4.20-5.00); RDW 13.6 % (10.5-14.5); WBC 4.6 thou/uL (4.0-11.0)
[2019-04-24 11:28] LABS: ALBUMIN 4.6 g/dL (3.4-5.0); POTASSIUM 3.7 mmol/L (3.5-5.1); TOTAL BILIRUBIN 0.4 mg/dL (<0.1-1.0); TOTAL PROTEIN 9.9 g/dL (6.4-8.2)
[2019-04-24 11:37] LABS: CALCIUM 10.6 mg/dL (8.5-10.1)
[2019-04-24 12:43] LABS: URINE BLOOD 3+ (Negative); URINE CLARITY SL CLOUDY; URINE COLOR AMBER; URINE GLUCOSE-RANDOM* NEGATIVE (Negative); URINE KETONES 3+ (Negative); URINE LEUKOCYTES-REFLEX NEGATIVE (Negative); URINE NITRITE-REFLEX NEGATIVE (Negative); URINE PROTEIN (DIPSTICK) 3+ (Negative); URINE SPECIFIC GRAVITY >= 1.030 (1.005-1.035); URINE UROBILINOGEN 0.2 E.U./dl (0.2-1.0)
[2019-04-24 13:04] LABS: ICTOTEST (BILI CONFIRMATORY) Negative (Negative); URINE BILIRUBIN NEGATIVE (Negative)
[2019-04-24 13:05] LABS: URINE REDUCING SUBSTANCE NEGATIVE
[2019-04-24 13:29] LABS: CASTS None Seen /LPF (None Seen); CRYSTALS None Seen /LPF (None Seen); MUCUS 4-6 Moderate strn/LPF (None Seen); SQUAMOUS 0-3 Few /LPF (0-3); URINE RBC 3-10 Few /HPF (0-2)
[2019-04-24 13:30] LABS: URINE WBC-REFLEX 0-5 Rare /HPF (0-5)
[2019-04-24] MEDS ORDERED: ONDANSETRON HCL4 M2 PO (14:01)
[2019-04-24] MEDS ORDERED: BUTALB-APAP-CA1 EACH PO (14:01)
[2019-04-24 14:55] VITALS: BP 133/69
== END 2019-04-24 14:56 | disposition home or self-care (01) ==
LOC: ER 10:44
PROVIDERS: Physician Assistant
DX: R10.84 Generalized abdominal pain (principal); R11.2 Nausea with vomiting, unspecified; I10 Essential (primary) hypertension; F17.210 Nicotine dependence, cigarettes, uncomplicated; Z98.890 Other specified postprocedural states; Z88.5 Allergy status to narcotic agent

== ENCOUNTER 2020-01-09 11:26 | Emergency (ER) | payer OTHER ==
[~2020-01-09] VITALS: Ht 165.1 cm; Wt 79.4 kg
[~2020-01-09 11:26] MED LIST changes: +BUTALB-APAP-CA1 EACH PO
[2020-01-09] MEDS ORDERED: LISINOPRIL2.5 MG PO (11:35)
[2020-01-09] MEDS ORDERED: DOXYCYCLINE 10100 MG PO (14:32)
[2020-01-09] MEDS ORDERED: NAPROSYN500 MG PO (14:32)
[2020-01-09] MEDS ORDERED: TRAMADOL 50 MG50 MG PO (14:32)
[2020-01-09 14:58] VITALS: BP 132/83
[2020-01-10] MEDS ORDERED: ZOFRAN ODT4 MG PO (22:01)
== END 2020-01-09 14:59 | disposition home or self-care (01) ==
LOC: ER 11:26
DX: N61.0 Mastitis without abscess (principal); I10 Essential (primary) hypertension; F17.210 Nicotine dependence, cigarettes, uncomplicated; Z98.890 Other specified postprocedural states; Z79.899 Other long term (current) drug therapy; Z88.5 Allergy status to narcotic agent

== ENCOUNTER 2020-01-10 16:45 | Emergency (ER) | payer OTHER ==
[~2020-01-10] VITALS: Ht 170.2 cm; Wt 79.4 kg
[~2020-01-10 16:45] MED LIST changes: +DOXYCYCLINE 10100 MG PO; +LISINOPRIL2.5 MG PO; +NAPROSYN500 MG PO; +TRAMADOL 50 MG50 MG PO
[2020-01-10 18:41] LABS: ABSOLUTE NEUTROPHILS 7.2 thou/uL (1.4-8.2); BASOPHILS 0.4 % (0.0-2.0); EOSINOPHILS 0.1 % (0.0-3.0); HEMATOCRIT 42.9 % (37.0-47.0); LYMPHOCYTES 10.8 % (24.0-44.0); MCH 34.2 pg (26.0-34.0); MCHC 34.8 g/dL (28.0-37.0); MCV 98.1 fL (80.0-100.0); MONOCYTES 3.8 % (1.0-8.0); PLATELET COUNT 160 thou/uL (150-400); POLYS 84.9 % (36.0-66.0); RBC 4.38 mil/uL (4.20-5.00); WBC 8.5 thou/uL (4.0-11.0)
[2020-01-10 18:49] LABS: CALCIUM 9.8 mg/dL (8.5-10.1); CREATININE 0.7 mg/dL (0.6-1.0); POTASSIUM 4.9 mmol/L (3.5-5.1)
[2020-01-10 18:56] LABS: ALBUMIN 4.4 g/dL (3.4-5.0); TOTAL BILIRUBIN 0.7 mg/dL (0.2-1.0); TOTAL PROTEIN 9.2 g/dL (6.4-8.2)
[2020-01-10 20:31] LABS: URINE BLOOD NEGATIVE (Negative); URINE CLARITY CLEAR; URINE COLOR YELLOW; URINE GLUCOSE-RANDOM* NEGATIVE (Negative); URINE KETONES 3+ (Negative); URINE LEUKOCYTES-REFLEX NEGATIVE (Negative); URINE NITRITE-REFLEX NEGATIVE (Negative); URINE PROTEIN (DIPSTICK) 2+ (Negative)
[2020-01-10 20:32] LABS: ICTOTEST (BILI CONFIRMATORY) Negative (Negative); URINE BILIRUBIN NEGATIVE (Negative)
[2020-01-10 20:33] LABS: URINE REDUCING SUBSTANCE NEGATIVE
[2020-01-10 20:56] LABS: BACTERIA-REFLEX 1-9 Few /HPF (None Seen); CRYSTALS None Seen /LPF (None Seen); HYALINE CASTS 0-3 Few /LPF (None Seen); MUCUS >6 Heavy strn/LPF (None Seen); SQUAMOUS 0-3 Few /LPF (0-3); URINE RBC 3-10 Few /HPF (0-2); URINE WBC-REFLEX 0-5 Rare /HPF (0-5)
[2020-01-10] MEDS ORDERED: ZOFRAN ODT4 MG PO (22:01)
[2020-01-10 22:06] VITALS: BP 122/74
== END 2020-01-10 22:06 | disposition home or self-care (01) ==
LOC: ER 16:45
PROVIDERS: Emergency Medicine
DX: R11.2 Nausea with vomiting, unspecified (principal); R82.4 Acetonuria; I10 Essential (primary) hypertension; F17.210 Nicotine dependence, cigarettes, uncomplicated; Z79.899 Other long term (current) drug therapy; Z79.2 Long term (current) use of antibiotics; Z88.5 Allergy status to narcotic agent

== ENCOUNTER 2020-10-13 22:57 | Emergency (ER) | payer OTHER ==
[~2020-10-13] VITALS: Ht 165.1 cm; Wt 70.8 kg
[2020-10-13 23:35] LABS: URINE BLOOD TRACE (Negative); URINE COLOR YELLOW; URINE GLUCOSE-RANDOM* NEGATIVE (Negative); URINE KETONES 3+ (Negative); URINE LEUKOCYTES-REFLEX NEGATIVE (Negative); URINE NITRITE-REFLEX NEGATIVE (Negative); URINE PROTEIN (DIPSTICK) TRACE (Negative); URINE SPECIFIC GRAVITY 1.025 (1.005-1.035); URINE UROBILINOGEN 0.2 E.U./dl (0.2-1.0)
[2020-10-13 23:35] LABS: ABSOLUTE NEUTROPHILS 8.7 thou/uL (1.4-8.2); BASOPHILS 0.5 % (0.0-2.0); EOSINOPHILS 0.2 % (0.0-3.0); HEMOGLOBIN 17.1 gm/dL (12.0-15.0); LYMPHOCYTES 16.6 % (24.0-44.0); MCHC 33.5 g/dL (28.0-37.0); MCV 98.6 fL (80.0-100.0); MONOCYTES 4.2 % (1.0-8.0); PLATELET COUNT 189 thou/uL (150-400); POLYS 78.5 % (36.0-66.0); RBC 5.17 mil/uL (4.20-5.00); RDW 14.4 % (10.5-14.5); WBC 11.1 thou/uL (4.0-11.0)
[2020-10-13 23:37] LABS: ICTOTEST (BILI CONFIRMATORY) Negative (Negative); URINE BILIRUBIN NEGATIVE (Negative)
[2020-10-13 23:44] LABS: CALCIUM 9.4 mg/dL (8.5-10.1); CREATININE 1.1 mg/dL (0.6-1.0); POTASSIUM 3.4 mmol/L (3.5-5.1)
[2020-10-13 23:49] LABS: BACTERIA-REFLEX 1-9 Few /HPF (None Seen); CASTS None Seen /LPF (None Seen); CRYSTALS None Seen /LPF (None Seen); MUCUS 4-6 Moderate strn/LPF (None Seen); SQUAMOUS >10 Many /LPF (0-3); URINE CLARITY CLEAR; URINE RBC None Seen /HPF (NONE SEEN); URINE WBC-REFLEX None Seen /HPF (0-5)
[2020-10-13 23:51] LABS: ALBUMIN 4.4 g/dL (3.4-5.0); TOTAL BILIRUBIN 0.7 mg/dL (0.2-1.0); TOTAL PROTEIN 8.4 g/dL (6.4-8.2)
[2020-10-14] MEDS ORDERED: HALOPERIDOL 2 MG2 MG PO (00:15)
[2020-10-14 00:25] VITALS: BP 136/47
== END 2020-10-14 00:40 | disposition home or self-care (01) ==
LOC: ER 22:57
PROVIDERS: Emergency Medicine
DX: R11.10 Vomiting, unspecified (principal); F12.90 Cannabis use, unspecified, uncomplicated; I10 Essential (primary) hypertension; F17.210 Nicotine dependence, cigarettes, uncomplicated; Z98.890 Other specified postprocedural states; Z88.5 Allergy status to narcotic agent